=== PATIENT | female | born 1995 | race Hispanic/Latino ===

== ENCOUNTER 2022-10-28 16:00 | Emergency (ER) | payer SELFPAY ==
[2022-10-28 16:41] LABS: Pregnancy Test - Urine (BHCG) POSITIVE (Negative)
[2022-10-28 16:42] LABS: Pregu Control Background? CLEAR/WHITE (CLR/WHITE); Pregu Control Bar Appear? YES (CONTROL BAR); Specific Gravity 1.015 (1.002-1.036)
[2022-10-28 17:26] LABS: #Basophils 0.1 10x3/uL (0.0-0.2); #Eosinphils 0.1 10x3/uL (0.0-0.5); #Monocytes 0.9 10x3/uL (0.0-1.1); #Neutrophils 5.4 10x3/uL (1.5-8.4); %Basophils 0.7 % (0.0-2.0); %Eosinophils 1.2 % (0.0-6.0); %Monocytes 9.1 % (0.0-10.0); %Neutrophils 52.6 % (40.0-75.0); Hematocrit 35.6 % (34.9-44.5); Hemoglobin 12.1 g/dL (12.0-15.5); Mean Corpuscular Hemoglobin 29.4 pg (27.0-33.0); Mean Corpuscular Volume 86.4 fl (81.6-98.3); Platelet Count 291 10x3/uL (150-450); RBC Distribution Width 14.6 % (11.5-14.5); Red Blood Cell (RBC) Count 4.12 10x6/uL (3.90-5.03); White Blood Cell (WBC) Count 10.2 10x3/uL (3.5-10.5)
[2022-10-28 17:26] LABS: Bilirubin Neg (Negative); Blood, Urine Negative (Negative); Clarity Clear (Clear); Glucose, Urine (Dipstick) Normal (Negative); Ketone, Urine Negative (Negative); Leukocyte Negative (Negative); Nitrite Negative (Negative); Protein, Urine (Dipstick) Negative (Neg-Trace)
[2022-10-28] MEDS ORDERED: Acetaminophen 325 MG TAB ONE (17:29)
[2022-10-28 17:33] LABS: Bacteria/HPF 1+ HPF (None Seen); CAUTI Indications for Culture Pelvic or flank pain; RBC/HPF 0-3 HPF (0-3); WBC/HPF 0-3 HPF (0-3)
[2022-10-28 17:34] LABS: Urine Culture Reflex No No
[2022-10-28 17:39] LABS: ALT (SGPT) 31 U/L (8-55); AST (SGOT) 25 U/L (5-34); Albumin 4.1 g/dL (3.5-5.0); Alkaline Phosphatase 77 U/L (40-110); Anion Gap 14 mmol/L (10-20); BUN (Urea Nitrogen) 5 mg/dL (7.0-18.7); Bilirubin, Total 0.6 mg/dL (0.2-1.2); Calc. Creatinine Clearance 0 mL/min (70-130); Calcium 8.9 mg/dL (7.8-10.44); Carbon Dioxide 22 mmol/L (22-29); Chloride 105 mmol/L (98-107); Estimated GFR 114; Glucose 90 mg/dL (70-105); Protein, Total 7.1 g/dL (6.0-8.3); Sodium 137 mmol/L (136-145)
== END 2022-10-28 20:58 | disposition home or self-care (01) ==
LOC: CSHERS 16:00
DX: O99.891 Other specified diseases and conditions complicating pregnancy (principal); R10.9 Unspecified abdominal pain; Z3A.01 Less than 8 weeks gestation of pregnancy
CPT/HCPCS: 36415; 76856; 80053; 81001; 81025; 84702; 85025; 93005

== ENCOUNTER 2025-01-12 08:27 | Outpatient (CLI) | payer OTHER | END 2025-01-12 08:28 | disposition home or self-care (01) | LOC: CSHULT 08:27 | PROVIDERS: ATTEND Nurse Practitioner Family | DX: R10.33 Periumbilical pain (principal); N28.9 Disorder of kidney and ureter, unspecified; K76.0 Fatty (change of) liver, not elsewhere classified | CPT/HCPCS: 76700 ==